=== PATIENT | female | born 1995 | race Caucasian/White ===

== ENCOUNTER 2016-08-22 07:27 | Emergency (ER) | payer OTHER ==
--- NOTE | 2016-08-22 08:24 | EDDOCDS ---
Physician Documentation [facility] Name: Jolene Robert Age: 21 yrs Sex: Female : 1995 Arrival Date: 08/22/2016 Time: 07:27 Bed I3 / M3 Private MD: Disposition: 08/22/16 08:16 Discharged to Home/Self Care. Impression: Dysuria, Urinary tract infection, site not specified. - Condition is Stable. - Discharge Instructions: Urinary Tract Infection. - Prescriptions for Pyridium 200 mg Oral Tablet - take 1 tablet by ORAL route every 8 hours for 2 days; 6 tablet. Macrobid 100 mg Oral Capsule - take 100 milligrams by ORAL route every 12 hours for 7 days; 14 capsule. - Medication Reconciliation, Local Pharmacy Hours form. - Follow up: Emergency Department; When: As needed; Reason: Worsening of conditions. [facility]; When: Call to arrange an appointment; Reason: Recheck today's complaints, Continuance of care, To establish care. Follow up: Hillary Tyson MD; When: Call to arrange an appointment; Reason: Wound/Symptom Recheck, Further diagnostic work-up, Recheck today's complaints, Continuance of care, To establish care. - Problem is new. - Symptoms are unchanged. - Notes: THE PYRIDIUM IS FOR THE DISCOMFORT AND THIS MEDICATION WILL TURN YOUR URINE BRIGHT ORANGE-RED. THIS IS NORMAL. PLEASE CALL THE UROLOGIST TO SCHEDULE A FOLLOW UP APPOINTMENT TO BE SEEN. THEY CAN PERFORM MORE TESTING TO SEE WHY YOU GET FREQUENT INFECTIONS. TAKE THE ANTIBIOTIC DIRECTED UNTIL IT IS GONE, EVEN IF YOUR SYMPTOMS IMPROVE BEFORE THAT. Historical: - Allergies: no known allergies; - Home Meds: 1. none - PMHx: UTI's, Frequent; - PSHx: none; - Social history: Smoking status: Patient/guardian denies using No barriers to communication noted, The patient speaks fluent Ukrainian. - Family history: Not pertinent. - : The pt / caregiver states he / she is not on anticoagulants. Home medication list is obtained from the patient. - Exposure Risk Screening:: None identified. 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 2 in. (157.48 cm) (R); Pain 310; 07:34 Body Mass Index 18.29 (45.36 kg, 157.48 cm) dls MDM: 07:37 UCG by Nursing ordered. dt4 07:39 Urinalysis Ordered. EDMS 07:39 Urine Culture Ordered. EDMS 07:46 [facility] Payment Agreement was scanned into ? and attached to record. dm19 07:46 Financial registration complete. dm19 Point of Care Testing: Urine : 07:45 hCG Reading: Negative; jam1 Ranges: Signatures: Dispatcher [employer] EDJoselyn Workman RN RN dls Carol Nice RN RN kr3 Wanda Rosa, CARLOS GONZALEZ dt4 Wanda Gleason dm19 The chart was reviewed and I authenticate all verbal orders and agree with the evaluation and treatment provided.Attachments: 07:46 [facility] Payment Agreement dm19 MTDD
--- NOTE | 2016-08-22 08:24 | EDDOCDS ---
Nurse's Notes [facility] Name: Jolene Robert Age: 21 yrs Sex: Female : 1995 Arrival Date: 08/22/2016 Time: 07:27 Bed I3 / M3 Private MD: Diagnosis: Dysuria;Urinary tract infection, site not specified Presentation: 08/22 07:32 Presenting complaint: Patient states: Pt presents with c/o sx of bladder infection pt dls has hx of frequent uti's states it is making her anxious. Adult Sepsis Screening: The patient does not have new or worsening altered mentation. Patient's respiratory rate is less than 22. Systolic blood pressure is greater than 100. Patient has a qSOFA score of 0- Negative Sepsis Screen. Suicide/Homicide risk assessment- the patient denies having any suicidal and/or homicidal ideations and does not present with any other emotional, behavioral or mental health complaints. Status: Patient is not a agricultural services director or dependent. Transition of care: patient was not received from another setting of care. 07:32 Acuity: ALEX Level 4 dls 07:32 Method Of Arrival: Walkin/Carried/Asstd dls Triage Assessment: 07:34 General: Appears in no apparent distress, slender, well developed, well nourished, well dls groomed, Behavior is cooperative. Pain: Pain currently is 3 out of 10 on a pain scale. HIV screening NA for this visit Offered previously. 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 none - PMHx: UTI's, Frequent; - PSHx: none; - Social history: Smoking status: Patient/guardian denies using No barriers to communication noted, The patient speaks fluent Swedish. - Family history: Not pertinent. - : The pt / caregiver states he / she is not on anticoagulants. Home medication list is obtained from the patient. - Exposure Risk Screening:: None identified. Screenin:45 Screening information is obtained from the patient. Primary language is Swedish. Fall jam1 risk: No risks identified. Assistance ADL's: requires no assistance with activities of daily living. Abuse/DV Screen: The patient / caregiver reports he/she is: not in a situation that causes fear, pain or injury. Nutritional screening: No deficits noted. Exposure Risk Screening: None identified. Advance Directives: Currently, there is no health care proxy. There is no active DNR order. There is no living will. There is no Power of Industry Consultant. Advance directive information has not previously been placed in an [facility] medical record. Further advance directive information is declined. home support is adequate. Assessment: 07:55 General: Appears in no apparent distress, comfortable, Behavior is appropriate for age, kr3 cooperative. Pain: Denies pain. Respiratory: Respiratory effort is even, unlabored. Derm: Skin is normal. Vital Signs: 07:34 BP 133 / 79; Pulse 67; Resp 16; Temp 97.5; Pulse Ox 98% on R/A; Weight 45.36 kg (R); dls Height 5 ft. 2 in. (157.48 cm) (R); Pain 3/10; 07:34 Body Mass Index 18.29 (45.36 kg, 157.48 cm) reading hospital Vitals: 07:34 Log In Time: August 22, 2016 at 07:28. dls ED Course: 07:29 Patient visited by Margo Prasad Reg. hs2 07:29 Patient moved to Waiting hs2 07:34 Triage Initiated dls 07:37 Patient moved to I3 / M3 dls 07:42 Wanda Rosa [facility]-C [facility]. dt4 07:42 Teodoro Clarke MD is Attending Physician. dt4 07:42 Patient visited by Wanda Rosa PA-C. dt4 07:44 Urine Culture Sent. jam1 07:44 Urinalysis Sent. jam1 07:45 Pt greeted and oriented to ED. Patient advised of names of staff involved in care, jam1 location of call rogel, wait times and NPO status. Patient has correct armband on for positive identification. Bed in low position. Call light in reach. Side rails up X 1. Door closed. 07:46 [facility] Payment Agreement was scanned into [employer] and attached to record. dm19 07:54 The patient / caregiver is instructed regarding the plan of care and ED course. kr3 07:54 No procedures done that require assistance. kr3 08:16 [facility] is Referral Physician. dt4 08:16 Hillary Tyson MD is Referral Physician. dt4 08:23 No IV's were initiated during this patient's visit. kr3 Point of Care Testing: Urine : 07:45 hCG Reading: Negative; jam1 Ranges: Order Results: Lab Order: Urinalysis; SPEC'M 08/22/16 07:41 Test: APPEARANCE, URINE; Value: CLOUDY; Range: CLEAR; Abnormal: Above high normal; Status: F Test: COLOR, URINE; Value: GRISELDA; Range: YELLOW; Status: F Test: PH,URINE; Value: 5.0; Range: 5.0-9.0; Units: UNITS; Status: F Test: SPECIFIC GRAVITY URINE AUTO; Value: 1.026; Range: 1.002-1.035; Status: F Test: PROTEIN, URINE AUTO; Value: 1+; Range: NEGATIVE; Abnormal: Above high normal; Units: mg/dL; Status: F Test: GLUCOSE, URINE (UA) AUTO; Value: NEGATIVE; Range: NEGATIVE; Units: mg/dL; Status: F Test: KETONE, URINE AUTO; Value: TRACE; Range: NEGATIVE; Abnormal: Above high normal; Units: mg/dL; Status: F Test: UROBILINOGEN, URINE AUTO; Value: 0.2; Range: 0.0-2.0; Units: mg/dL; Status: F Test: BILIRUBIN, URINE AUTO; Value: NEGATIVE; Range: NEGATIVE; Status: F Test: NITRITE, URINE AUTO; Value: NEGATIVE; Range: NEGATIVE; Status: F Test: LEUKOCYTE ESTERASE, URINE AUTO; Value: 2+; Range: NEGATIVE; Abnormal: Above high normal; Status: F Test: BLOOD, URINE BLOOD; Value: 1+; Range: NEGATIVE; Abnormal: Above high normal; Status: F Test: WBC, URINE AUTO; Value: 97; Range: 0-3; Abnormal: Above high normal; Units: /HPF; Status: F Test: RBC, URINE AUTO; Value: 10; Range: 0-3; Abnormal: Above high normal; Units: /HPF; Status: F Test: BACTERIA, URINE AUTO; Value: NEGATIVE; Range: NEGATIVE; Status: F Test: SQUAMOUS EPITHELIAL CELL UR AU; Value: 2; Range: 0-6; Units: /HPF; Status: F Test: MUCUS, URINE; Value: LARGE; Range: NEGATIVE; Status: F Test: HYALINE CAST, URINE AUTO; Value: 0; Range: 0-1; Units: /LPF; Status: F Outcome: 07:54 No special radiology studies were completed. kr3 08:16 Discharge ordered by Provider. dt4 08:22 Discharge Assessment: patient administered narcotics - no. The following High Risk kr3 Discharge criteria are identified: None. Discharged to home ambulatory. Condition: stable. Discharge instructions given to patient, Instructed on discharge instructions, follow up and referral plans. medication usage, Demonstrated understanding of instructions, medications, Pt was receptive of discharge instructions/ teaching. Prescriptions given X 2. Property sent home with patient. 08:23 Patient left the ED. kr3 Signatures: Joselyn Santiago, RN RN dls Brandy Montoya, PROCUREMENT FORESTER PROCUREMENT FORESTER jam1 Carol Nice,RN RN kr3 Wanda Rosa, CARLOS PAArian dt4 Margo Prasad, Reg Reg hs2 Wanda Gleason dm19 MTDD
--- NOTE | 2016-08-25 10:40 | EDDOCDS ---
Nurse's Notes [facility] Name: Jolene Robert Age: 21 yrs Sex: Female : 1995 Arrival Date: 08/22/2016 Time: 07:27 Bed I3 / M3 Private MD: Diagnosis: Dysuria;Urinary tract infection, site not specified Presentation: 08/22 07:32 Presenting complaint: Patient states: Pt presents with c/o sx of bladder infection pt dls has hx of frequent uti's states it is making her anxious. Adult Sepsis Screening: The patient does not have new or worsening altered mentation. Patient's respiratory rate is less than 22. Systolic blood pressure is greater than 100. Patient has a qSOFA score of 0- Negative Sepsis Screen. Suicide/Homicide risk assessment- the patient denies having any suicidal and/or homicidal ideations and does not present with any other emotional, behavioral or mental health complaints. Status: Patient is not a bookkeeping service sales agent or dependent. Transition of care: patient was not received from another setting of care. 07:32 Acuity: ALEX Level 4 dls 07:32 Method Of Arrival: Walkin/Carried/Asstd dls Triage Assessment: 07:34 General: Appears in no apparent distress, slender, well developed, well nourished, well dls groomed, Behavior is cooperative. Pain: Pain currently is 3 out of 10 on a pain scale. HIV screening NA for this visit Offered previously. 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 none - PMHx: UTI's, Frequent; - PSHx: none; - Social history: Smoking status: Patient/guardian denies using No barriers to communication noted, The patient speaks fluent Bangladeshi. - Family history: Not pertinent. - : The pt / caregiver states he / she is not on anticoagulants. Home medication list is obtained from the patient. - Exposure Risk Screening:: None identified. Screenin:45 Screening information is obtained from the patient. Primary language is Bangladeshi. Fall jam1 risk: No risks identified. Assistance ADL's: requires no assistance with activities of daily living. Abuse/DV Screen: The patient / caregiver reports he/she is: not in a situation that causes fear, pain or injury. Nutritional screening: No deficits noted. Exposure Risk Screening: None identified. Advance Directives: Currently, there is no health care proxy. There is no active DNR order. There is no living will. There is no Power of Electric Gas Appliances Demonstrator. Advance directive information has not previously been placed in an [facility] medical record. Further advance directive information is declined. home support is adequate. Assessment: 07:55 General: Appears in no apparent distress, comfortable, Behavior is appropriate for age, kr3 cooperative. Pain: Denies pain. Respiratory: Respiratory effort is even, unlabored. Derm: Skin is normal. Vital Signs: 07:34 BP 133 / 79; Pulse 67; Resp 16; Temp 97.5; Pulse Ox 98% on R/A; Weight 45.36 kg (R); dls Height 5 ft. 2 in. (157.48 cm) (R); Pain 3/10; 07:34 Body Mass Index 18.29 (45.36 kg, 157.48 cm) [facility] Vitals: 07:34 Log In Time: August 22, 2016 at 07:28. dls ED Course: 07:29 Patient visited by Margo Prasad Reg. hs2 07:29 Patient moved to Waiting hs2 07:34 Triage Initiated dls 07:37 Patient moved to I3 / M3 dls 07:42 Wanda Rosa [facility]. dt4 07:42 Teodoro Clarke MD is Attending Physician. dt4 07:42 Patient visited by Wanda Rosa PA-C. dt4 07:44 Urine Culture Sent. jam1 07:44 Urinalysis Sent. jam1 07:45 Pt greeted and oriented to ED. Patient advised of names of staff involved in care, jam1 location of call rogel, wait times and NPO status. Patient has correct armband on for positive identification. Bed in low position. Call light in reach. Side rails up X 1. Door closed. 07:46 [facility] Payment Agreement was scanned into [employer] and attached to record. dm19 07:54 The patient / caregiver is instructed regarding the plan of care and ED course. kr3 07:54 No procedures done that require assistance. kr3 08:16 [facility] is Referral Physician. dt4 08:16 Hillary Tyson MD is Referral Physician. dt4 08:23 No IV's were initiated during this patient's visit. kr3 11:42 T-Sheet-- Draft Copy was scanned into [employer] and attached to record. [facility] Point of Care Testing: Urine : 07:45 hCG Reading: Negative; jam1 Ranges: Order Results: Lab Order: Urinalysis; SPEC'M 08/22/16 07:41 Test: APPEARANCE, URINE; Value: CLOUDY; Range: CLEAR; Abnormal: Above high normal; Status: F Test: COLOR, URINE; Value: GRISELDA; Range: YELLOW; Status: F Test: PH,URINE; Value: 5.0; Range: 5.0-9.0; Units: UNITS; Status: F Test: SPECIFIC GRAVITY URINE AUTO; Value: 1.026; Range: 1.002-1.035; Status: F Test: PROTEIN, URINE AUTO; Value: 1+; Range: NEGATIVE; Abnormal: Above high normal; Units: mg/dL; Status: F Test: GLUCOSE, URINE (UA) AUTO; Value: NEGATIVE; Range: NEGATIVE; Units: mg/dL; Status: F Test: KETONE, URINE AUTO; Value: TRACE; Range: NEGATIVE; Abnormal: Above high normal; Units: mg/dL; Status: F Test: UROBILINOGEN, URINE AUTO; Value: 0.2; Range: 0.0-2.0; Units: mg/dL; Status: F Test: BILIRUBIN, URINE AUTO; Value: NEGATIVE; Range: NEGATIVE; Status: F Test: NITRITE, URINE AUTO; Value: NEGATIVE; Range: NEGATIVE; Status: F Test: LEUKOCYTE ESTERASE, URINE AUTO; Value: 2+; Range: NEGATIVE; Abnormal: Above high normal; Status: F Test: BLOOD, URINE BLOOD; Value: 1+; Range: NEGATIVE; Abnormal: Above high normal; Status: F Test: WBC, URINE AUTO; Value: 97; Range: 0-3; Abnormal: Above high normal; Units: /HPF; Status: F Test: RBC, URINE AUTO; Value: 10; Range: 0-3; Abnormal: Above high normal; Units: /HPF; Status: F Test: BACTERIA, URINE AUTO; Value: NEGATIVE; Range: NEGATIVE; Status: F Test: SQUAMOUS EPITHELIAL CELL UR AU; Value: 2; Range: 0-6; Units: /HPF; Status: F Test: MUCUS, URINE; Value: LARGE; Range: NEGATIVE; Status: F Test: HYALINE CAST, URINE AUTO; Value: 0; Range: 0-1; Units: /LPF; Status: F Lab Order: Urine Culture; SPEC'M 08/22/16 07:41 Test: URINE CULTURE; Value: URINE CULTURE RESULT SPECIMEN APPEARS CONTAMINATED; Status: F Outcome: 07:54 No special radiology studies were completed. kr3 08:16 Discharge ordered by Provider. dt4 08:22 Discharge Assessment: patient administered narcotics - no. The following High Risk kr3 Discharge criteria are identified: None. Discharged to home ambulatory. Condition: stable. Discharge instructions given to patient, Instructed on discharge instructions, follow up and referral plans. medication usage, Demonstrated understanding of instructions, medications, Pt was receptive of discharge instructions/ teaching. Prescriptions given X 2. Property sent home with patient. 08:23 Patient left the ED. kr3 Signatures: Joselyn Santiago, RN RN dls Brandy Montoya, WOODEN SHADE HARDWARE INSTALLER WOODEN SHADE HARDWARE INSTALLER jam1 Carol Nice RN RN kr3 Wanda Rosa, PA-C PA-C dt4 Margo Prasad, [facility]2 Dominga Carranza Diane dm19 Chart Complete [facility]
--- NOTE | 2016-08-25 10:40 | EDDOCDS ---
Physician Documentation [facility] Name: Jolene Robert Age: 21 yrs Sex: Female : 1995 Arrival Date: 08/22/2016 Time: 07:27 Bed I3 / M3 Private MD: Disposition: 08/22/16 08:16 Discharged to Home/Self Care. Impression: Dysuria, Urinary tract infection, site not specified. - Condition is Stable. - Discharge Instructions: Urinary Tract Infection. - Prescriptions for Pyridium 200 mg Oral Tablet - take 1 tablet by ORAL route every 8 hours for 2 days; 6 tablet. Macrobid 100 mg Oral Capsule - take 100 milligrams by ORAL route every 12 hours for 7 days; 14 capsule. - Medication Reconciliation, Local Pharmacy Hours form. - Follow up: Emergency Department; When: As needed; Reason: Worsening of conditions. [facility]; When: Call to arrange an appointment; Reason: Recheck today's complaints, Continuance of care, To establish care. Follow up: Hillary Tyson MD; When: Call to arrange an appointment; Reason: Wound/Symptom Recheck, Further diagnostic work-up, Recheck today's complaints, Continuance of care, To establish care. - Problem is new. - Symptoms are unchanged. - Notes: THE PYRIDIUM IS FOR THE DISCOMFORT AND THIS MEDICATION WILL TURN YOUR URINE BRIGHT ORANGE-RED. THIS IS NORMAL. PLEASE CALL THE UROLOGIST TO SCHEDULE A FOLLOW UP APPOINTMENT TO BE SEEN. THEY CAN PERFORM MORE TESTING TO SEE WHY YOU GET FREQUENT INFECTIONS. TAKE THE ANTIBIOTIC DIRECTED UNTIL IT IS GONE, EVEN IF YOUR SYMPTOMS IMPROVE BEFORE THAT. Historical: - Allergies: no known allergies; - Home Meds: 1. none - PMHx: UTI's, Frequent; - PSHx: none; - Social history: Smoking status: Patient/guardian denies using No barriers to communication noted, The patient speaks fluent Prydeinig. - Family history: Not pertinent. - : The pt / caregiver states he / she is not on anticoagulants. Home medication list is obtained from the patient. - Exposure Risk Screening:: None identified. 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 2 in. (157.48 cm) (R); Pain 3; 07:34 Body Mass Index 18.29 (45.36 kg, 157.48 cm) dls MDM: 07:37 UCG by Nursing ordered. dt4 07:39 Urinalysis Ordered. EDMS 07:39 Urine Culture Ordered. EDMS 07:46 [facility] Payment Agreement was scanned into [employer] and attached to record. dm19 07:46 Financial registration complete. dm19 11:42 T-Sheet-- Draft Copy was scanned into [employer] and attached to record. [facility] Point of Care Testing: Urine : 07:45 hCG Reading: Negative; jam1 Ranges: Signatures: Dispatcher [employer] Joselyn Hughes RN RN Carol Booker RN RN kr3 Wanda Rosa, CARLOS GONZALEZ dt4 Dominga Carranza Diane dm19 The chart was reviewed and I authenticate all verbal orders and agree with the evaluation and treatment provided.Attachments: 07:46 [facility] Payment Agreement dm19 11:42 T-Sheet-- Draft Copy [facility] Chart Complete MTDD
--- NOTE | 2016-08-25 10:40 | EDDOCDS ---
Physician Documentation [facility] Name: Jolene Robert Age: 21 yrs Sex: Female : 1995 Arrival Date: 08/22/2016 Time: 07:27 Bed I3 / M3 Private MD: Disposition: 08/22/16 08:16 Discharged to Home/Self Care. Impression: Dysuria, Urinary tract infection, site not specified. - Condition is Stable. - Discharge Instructions: Urinary Tract Infection. - Prescriptions for Pyridium 200 mg Oral Tablet - take 1 tablet by ORAL route every 8 hours for 2 days; 6 tablet. Macrobid 100 mg Oral Capsule - take 100 milligrams by ORAL route every 12 hours for 7 days; 14 capsule. - Medication Reconciliation, Local Pharmacy Hours form. - Follow up: Emergency Department; When: As needed; Reason: Worsening of conditions. Follow up: [facility]; When: Call to arrange an appointment; Reason: Recheck today's complaints, Continuance of care, To establish care. Follow up: Hillary Tyson MD; When: Call to arrange an appointment; Reason: Wound/Symptom Recheck, Further diagnostic work-up, Recheck today's complaints, Continuance of care, To establish care. - Problem is new. - Symptoms are unchanged. - Notes: THE PYRIDIUM IS FOR THE DISCOMFORT AND THIS MEDICATION WILL TURN YOUR URINE BRIGHT ORANGE-RED. THIS IS NORMAL. PLEASE CALL THE UROLOGIST TO SCHEDULE A FOLLOW UP APPOINTMENT TO BE SEEN. THEY CAN PERFORM MORE TESTING TO SEE WHY YOU GET FREQUENT INFECTIONS. TAKE THE ANTIBIOTIC DIRECTED UNTIL IT IS GONE, EVEN IF YOUR SYMPTOMS IMPROVE BEFORE THAT. Historical: - Allergies: no known allergies; - Home Meds: 1. none - PMHx: UTI's, Frequent; - PSHx: none; - Social history: Smoking status: Patient/guardian denies using No barriers to communication noted, The patient speaks fluent Libyan. - Family history: Not pertinent. - : The pt / caregiver states he / she is not on anticoagulants. Home medication list is obtained from the patient. - Exposure Risk Screening:: None identified. 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 2 in. (157.48 cm) (R); Pain 3; 07:34 Body Mass Index 18.29 (45.36 kg, 157.48 cm) dls MDM: 07:37 UCG by Nursing ordered. dt4 07:39 Urinalysis Ordered. EDMS 07:39 Urine Culture Ordered. EDMS 07:46 [facility] Payment Agreement was scanned into [employer] and attached to record. dm19 07:46 Financial registration complete. dm19 11:42 T-Sheet-- Draft Copy was scanned into [employer] and attached to record. [facility] Point of Care Testing: Urine : 07:45 hCG Reading: Negative; jam1 Ranges: Signatures: Dispatcher [employer] Joselyn Hughes RN RN Carol Booker RN RN kr3 Wanda Rosa, CARLOS GONZALEZ dt4 Dominga Carranza Diane dm19 The chart was reviewed and I authenticate all verbal orders and agree with the evaluation and treatment provided.Attachments: 07:46 [facility] Payment Agreement dm19 11:42 T-Sheet-- Draft Copy [facility] Chart Complete MTDD
== END 2016-08-22 08:23 | disposition home or self-care (01) ==
LOC: M ED 07:27
DX: N39.0 Urinary tract infection, site not specified (principal); Z87.440 Personal history of urinary (tract) infections

== ENCOUNTER 2016-11-23 00:53 | Emergency (ER) | payer OTHER ==
[~2016-11-23] VITALS: Ht 157.5 cm; Wt 49.9 kg
[2016-11-23 04:10] LABS: CALCIUM OXALATE CRYSTALS SMALL
[2016-11-23] MEDS ORDERED: CIPR500T89 PO (04:21)
[2016-11-23] MEDS ORDERED: PYRI200T5 PO (04:21)
[2016-11-23] MEDS ORDERED: PHENAZOPYRIDINE 100 MG TAB PO ONE (04:30)
[2016-11-23] MEDS ORDERED: CIPROFLOXACIN 500 MG TAB PO ONE (04:30)
[2016-11-23 04:31] VITALS: BP 127/74
== END 2016-11-23 04:32 | disposition home or self-care (01) ==
LOC: M ED 01:54
DX: R30.0 Dysuria (principal)

== ENCOUNTER → 2017-02-26 | Outpatient (REF) | payer OTHER ==
[~2017-02-26] MED LIST: CIPR-249 PO; PYRI1TAB5 PO
[2017-02-26 22:59] LABS: CALCIUM OXALATE CRYSTALS MODERATE
== END ==
LOC: M LAB REF 09:38
PROVIDERS: ATTEND Physician Assistant Medical
DX: N39.0 Urinary tract infection, site not specified (principal)

== ENCOUNTER 2017-07-18 20:39 | Emergency (ER) | payer OTHER ==
[~2017-07-18] VITALS: Ht 157.5 cm; Wt 45.5 kg
[2017-07-18 22:12] VITALS: BP 116/81
== END 2017-07-18 22:21 | disposition home or self-care (01) ==
LOC: M ED 20:39
DX: S61.310A Laceration without foreign body of right index finger with damage to nail, initial encounter (principal); W31.82XA Contact with other commercial machinery, initial encounter; Y92.59 Other trade areas as the place of occurrence of the external cause; Y93.89 Activity, other specified; Y99.0 Civilian activity done for income or pay

== ENCOUNTER → 2017-08-10 | Outpatient (REF) | payer OTHER | LOC: M LAB REF 09:28 | PROVIDERS: ATTEND Physician Assistant | DX: N39.0 Urinary tract infection, site not specified (principal) ==

== ENCOUNTER → 2018-02-28 | Outpatient (REF) | payer OTHER ==
[2018-02-28 18:49] LABS: APPEARANCE, URINE HAZY (CLEAR); BACTERIA, URINE AUTO 2+ (NEGATIVE); BILIRUBIN, URINE AUTO NEGATIVE (NEGATIVE); BLOOD, URINE BLOOD 1+ (NEGATIVE); COLOR, URINE AMBER (YELLOW); GLUCOSE, URINE (UA) AUTO NEGATIVE (NEGATIVE); KETONE, URINE AUTO NEGATIVE (NEGATIVE); LEUKOCYTE ESTERASE, URINE AUTO 2+ (NEGATIVE); MUCUS, URINE SMALL (NEGATIVE); NITRITE, URINE AUTO POSITIVE (NEGATIVE); PROTEIN, URINE AUTO NEGATIVE (NEGATIVE); RBC, URINE AUTO 4 /HPF (0-3); SPECIFIC GRAVITY URINE AUTO 1.018 (1.002-1.035); SQUAMOUS EPITHELIAL CELL UR AU 2 /HPF (0-6); UROBILINOGEN, URINE AUTO 0.2 mg/dL (0.0-2.0); WBC, URINE AUTO 22 /HPF (0-3)
== END ==
LOC: M LAB REF 17:10
DX: N39.0 Urinary tract infection, site not specified (principal)

== ENCOUNTER → 2018-05-20 | Outpatient (REF) | payer OTHER | LOC: M SFHCPLAZ 11:47 | DX: R30.0 Dysuria (principal) ==

== ENCOUNTER → 2018-10-20 | Outpatient (CLI) | payer OTHER ==
[2018-10-20 20:21] LABS: HCG, SERUM QUALITATIVE POSITIVE (NEGATIVE)
[2018-10-20 20:41] LABS: HCG, SERUM QUANTITATIVE 64759 MIU/ML
== END ==
LOC: M LAB 19:43
PROVIDERS: ATTEND Physician Assistant Medical
DX: N91.2 Amenorrhea, unspecified (principal)

== ENCOUNTER → 2019-01-20 | Outpatient (CLI) | payer OTHER ==
[2019-01-20 14:06] LABS: BASO # 0.1 10^3/uL (0.0-0.2); BASO % 0.3 % (0.0-1.0); EOS # 0.3 10^3/uL (0.0-0.50); EOS % 2.3 % (0.0-3.0); HEMATOCRIT 36.2 % (36.0-47.0); HEMOGLOBIN 11.8 g/dl (12.0-15.5); LYMPH # 3.2 10^3/uL (1.5-6.5); LYMPH % 21.7 % (24.0-44.0); MEAN CORPUSCULAR HEMOGLOBIN 32.3 pg (27.0-33.0); MEAN CORPUSCULAR HGB CONC 32.6 g/dl (32.0-36.5); MEAN CORPUSCULAR VOLUME 99.2 fl (80.0-96.0); MONO # 0.8 10^3/uL (0.0-0.8); MONO % 5.4 % (0.0-5.0); NEUTROPHILS # 10.3 10^3/uL (1.8-7.7); NEUTROPHILS % 69.8 % (36.0-66.0); PLATELET COUNT, AUTOMATED 349 10^3/uL (150-450); RED BLOOD COUNT 3.65 10^6/uL (4.00-5.40); WHITE BLOOD COUNT 14.7 10^3/uL (4.0-10.0)
[2019-01-20 14:56] LABS: HEPATITIS C VIRUS ABY INDEX < 0.0 INDEX (<0.8); HIV 1&2 SCREEN CENTAUR NEGATIVE (NEGATIVE); RUBELLA IgG QUALITATIVE EQUIVOCAL (IMMUNE)
[2019-01-20 15:32] LABS: CHLAMYDIA DNA AMPLIFICATION NEGATIVE (NEGATIVE); GC DNA AMPLIFICATION NEGATIVE (NEGATIVE)
== END ==
LOC: M SMT 09:27
PROVIDERS: ATTEND Advanced Practice Midwife
DX: Z34.82 Encounter for supervision of other normal pregnancy, second trimester (principal); Z3A.00 Weeks of gestation of pregnancy not specified

== ENCOUNTER → 2019-01-30 | Outpatient (CLI) | payer OTHER ==
--- NOTE | 2019-01-30 09:55 | REP ---
OB ULTRASOUND: Real-time sonographic evaluation of the gravid uterus is performed. There is a single living intrauterine gestation. The estimated gestational age is 29 weeks. EDC 04/17/2019. BPD 75 mm = 30 weeks 2 days HC 265 mm = 28 weeks 6 days AC 236 mm= 28 weeks 0 days Femur length 56 mm = 29 weeks 2 days HC/AC ratio 1.12 within normal range. Estimated weight 261 grams, 33rd percentile. The cervix is not well visualized and could not be measured. heart rate 141 beats per minute. Amniotic fluid within normal limits. AGNES 13.2 within normal range of 9.2 to 23.1. SD ratio 3.04 and RI 0.67 with normal range. SEEN/GROSSLY UNREMARKABLE Lateral ventricles Yes Posterior fossa No Upper lip No Four-chamber heart No LVOT Yes RVOT Yes Stomach Yes Cord insertion No Three vessel cord Yes Kidneys Yes Bladder Yes Spine No position: Vertex. Placenta: Anterior and to the right, grade 1, with no previa or abruption. Electronically Signed by Forest Whalen MD 01/30/2019 04:18 P
== END ==
LOC: M RAD 08:06
PROVIDERS: ATTEND Advanced Practice Midwife
DX: Z34.82 Encounter for supervision of other normal pregnancy, second trimester (principal)

== ENCOUNTER → 2019-03-09 | Outpatient (CLI) | payer OTHER ==
--- NOTE | 2019-03-13 13:12 | REP ---
Clinical: Growth evaluation. Comparison: 02/16/2019 . Findings: Examination demonstrates a single live intrauterine in cephalic presentation. motion is identified by technologist. Placenta is noted anterior and grade one without evidence for placenta previa or abruption. Amniotic fluid volume is normal. Cervix measures 4.4 cm in length and appears closed. No evidence for nuchal cord. Gestational age by LMP 32 weeks 3 days with JENY 05/01/2019 . Gestational age by current measurements 33 weeks 1 day with JENY 04/26/2019 . FHR equals 133 beats per minute. BPD 8.2 cm 33 weeks 1 day HC 29.7 cm 32 weeks 6 days AC 31.7 cm 35 weeks 4 days FL 6.0 cm 31 weeks 2 days HL 5.6 cm 32 weeks 4 days HC/AC ratio 0.94 Estimated weight 2309 grams ( 37th percentile based on age by first ultrasound at 34 weeks 3 days ). Anatomical assessment demonstrates normal structures including cranium, choroid plexus, cavum, cerebellum/posterior fossa, facial features, lungs, four-chamber heart/ventricular outflow tracts, diaphragm, stomach, cord insertion/three-vessel cord, kidneys/bladder, and spine. Amniotic fluid index: 11.9 cm (8.0 - 24.8) Impression: Single live intrauterine in cephalic presentation demonstrating appropriate interval growth. Electronically Signed by Luis Benjamin MD 03/13/2019 01:04 P
== END ==
LOC: M RAD 09:23
PROVIDERS: ATTEND Advanced Practice Midwife
DX: O26.843 Uterine size-date discrepancy, third trimester (principal); Z3A.33 33 weeks gestation of pregnancy

== ENCOUNTER → 2019-04-11 | Outpatient (REF) | payer OTHER ==
[~2019-04-11] MED LIST changes: +ACET-683 PO; +IBUP80TA PO; +PRENTAB9 PO
== END ==
LOC: M LAB REF 13:03
PROVIDERS: ATTEND Advanced Practice Midwife
DX: Z34.83 Encounter for supervision of other normal pregnancy, third trimester (principal)

== ENCOUNTER 2019-04-21 22:45 | Inpatient (IN) | payer OTHER ==
[~2019-04-21] VITALS: Ht 157.5 cm; Wt 56.7 kg
[~2019-04-21 22:45] MED LIST changes: -ACET-683 PO; -IBUP80TA PO; -PRENTAB9 PO
[2019-04-21 23:06] VITALS: BP 113/77
[2019-04-21] MEDS ORDERED: PRENTAB9 PO (23:19)
[2019-04-21] MEDS ORDERED: LACTATED RINGER'S 1000 ML IV STA (23:52)
[2019-04-22] VITALS (29 sets, daily range): BP systolic 102–141; BP diastolic 60–88
[2019-04-22] MEDS ORDERED: BUTORPHANOL 2 MG/ML INJ (J0595) IV ONE (00:15)
[2019-04-22] MEDS ORDERED: PROMETHAZINE INJ 25 MG/ML VIAL (J2550) IV ONE (00:15)
[2019-04-22 00:31] LABS: HEMATOCRIT 36.2 % (36.0-47.0); MEAN CORPUSCULAR HEMOGLOBIN 31.3 pg (27.0-33.0); MEAN CORPUSCULAR HGB CONC 33.1 g/dl (32.0-36.5); MEAN CORPUSCULAR VOLUME 94.3 fl (80.0-96.0); PLATELET COUNT, AUTOMATED 315 10^3/uL (150-450); RED BLOOD COUNT 3.84 10^6/uL (4.00-5.40); WHITE BLOOD COUNT 19.1 10^3/uL (4.0-10.0)
--- NOTE | 2019-04-22 00:31 | HPE ---
DATE OF ADMISSION: 04/21/2019 CHIEF COMPLAINT: Abdominal and pelvic pain and leaking. HISTORY OF PRESENT ILLNESS: Jolene is a 24-year-old 1, para 0-0-0-0 at 40 weeks 4 days estimated gestational age by last menstrual period of 08/08/2019, confirmed by first trimester ultrasound with an estimated date of delivery of 04/17/2019. She is presenting complaining of lower abdominal pain and shaking as well as leaking pink discharge that started this morning. Around 2100 hours this evening, she started feeling increased pressure and contractions that were about 4 minutes apart. She is feeling the baby move. She denies any other discharge. She started care late at 19 weeks but has been compliant throughout the rest of it. LABS: Blood type O+, antibody screen negative, rubella equivocal, VDRL nonreactive. Hepatitis B surface antigen negative, HIV negative, hepatitis C nonreactive, chlamydia negative, gonorrhea negative, GBS negative. Urine drug screen was positive for cannabinoids. Obstetrical ultrasound shows single intrauterine with an anterior placenta grade 1. PAST OBSTETRICAL HISTORY: None. PAST MEDICAL HISTORY: Depression and anxiety. MEDICATIONS: Prenatals. PAST SURGICAL HISTORY: ALLERGIES: SULFA SOCIAL HISTORY: Denies tobacco, alcohol or illicit drugs. PHYSICAL EXAM: Abdomen: Gravid. Sterile vaginal exam: 30, 90, -1. monitor: 115 beats per minute, moderate variability, accelerations, no decelerations. Category 1 tracing. [place]: Contractions every 2-4 minutes. ASSESSMENT/PLAN: 1. This is an intrauterine at 40 weeks and 4 days estimated gestational age presenting in active labor. Admit to labor and delivery with routine labs and orders. 2. Group B Streptococcus (GBS) negative. No antibiotics are needed. 3. Anticipate spontaneous vaginal delivery.
[2019-04-22] MEDS ORDERED: FENTANYL 2MCG/ML ROPIVACAINE 0.2% IN 0.9% NACL 100ML IVBAG As Ordered ONE (02:25)
[2019-04-22] MEDS ORDERED: REFRIGERATOR IV KEYS XX PRN (03:10)
[2019-04-22] MEDS ORDERED: EPIDURAL COMMENT XX SCH (03:10)
[2019-04-22] MEDS ORDERED: NALOXONE INJ 0.4 MG/1 ML VIAL (J2310) IV PRN (03:10)
[2019-04-22] MEDS ORDERED: ePHEDrine SULFATE 25 MG/5 ML(5MG/ML) SYRINGE IV PRN (03:10)
[2019-04-22] MEDS ORDERED: ONDANSETRON 4MG/2ML VIAL (J2405) IV PRN (03:10)
[2019-04-22] MEDS ORDERED: diphenhydrAMINE INJ 50MG/ML VIAL (J1200) IV PRN (03:10)
[2019-04-22] MEDS ORDERED: EPIDURAL/PCA KEYS XX PRN (03:10)
[2019-04-22] MEDS ORDERED: FENTANYL/ROPIVACAINE/NACL BAG 100 ML EPIDURAL SCH (03:10)
--- NOTE | 2019-04-22 06:37 | IPNPDOC ---
Text Note Date of Service The patient was seen on 04/22/19. NOTE Progress note Reports ROM 1800, clear fluid Comfortable now with epidural UC 3-4 minutes x 60 seconds FH Cat I with episodes Cat II that resolve with position change SVE 10/100/-1 VS,Fishbone, I+O VS, Fishbone, I+O Laboratory Tests 04/22/19 00:09 Red Blood Count 3.84 L, Mean Corpuscular Volume 94.3, Mean Corpuscular Hemoglobin 31.3, Mean Corpuscular Hemoglobin Concent 33.1, Red Cell Distribution Width 14.2 Vital Signs Date Time Temp Pulse Resp B/P (MAP) Pulse Ox O2 Delivery O2 Flow Rate FiO2 04/22/19 02:34 71 128/76 (93) 04/22/19 00:32 18 04/21/19 23:06 97.8 Abbey Snyder CNM Apr 22, 2019 06:37
[2019-04-22] MEDS ORDERED: OXYTOCIN 30 UNITS IN 0.9% NaCl 500ML IV BAG (J2590) As Ordered ONE (07:08)
[2019-04-22] MEDS ORDERED: OXYTOCIN DRIP 30 UNITS in IV 1 EA IV SCH (10:10)
[2019-04-22] MEDS ORDERED: MOM 30ML SUSPENSION UDC PO PRN (10:15)
[2019-04-22] MEDS ORDERED: METHYLERGONOVINE MALEATE 0.2 MG TAB PO PRN (10:15)
[2019-04-22] MEDS ORDERED: RHOGAM 300 MCG (1500 IU) INJ (J2790) IM SCH (10:15)
[2019-04-22] MEDS ORDERED: IBUPROFEN 800 MG TAB PO PRN (10:15)
[2019-04-22] MEDS ORDERED: ANUSOL HC CREAM 30GM TOP PRN (10:15)
[2019-04-22] MEDS ORDERED: MEASLES,MUMPS,RUBELLA VACCINE INJ (MMR-II) (90707) SC SCH (10:15)
[2019-04-22] MEDS ORDERED: ACETAMINOPHEN 500 MG TAB PO PRN (10:15)
[2019-04-22] MEDS ORDERED: ACETAMINOPHEN TAB 650MG DOSE (2X325MG) PO PRN (10:15)
[2019-04-22] MEDS ORDERED: DIBUCAINE 1% OINTMENT 30GM TOP PRN (10:15)
--- NOTE | 2019-04-22 10:41 | DN ---
DATE OF PROCEDURE: 04/22/2019 TIME OF : 09 GENDER: Male Apgars 9 and 9 WEIGHT: 6 pounds 8 ounces 2950 grams. ANESTHESIA: Epidural. ESTIMATED BLOOD LOSS: 300 mL LACERATIONS: Second degree midline laceration. COUNTS: 5 laparotomy sponges accounted for prior to delivery. One sharp removed from delivery field. DELIVERY NOTE: On April 22, 2019 at 094 a 24-year-old 1 now para 1had a spontaneous vaginal delivery of a live born male infant, Apgars 9 and 9, weight was 6 pounds 8 ounces 2950 grams. Head was delivered OA. There was a nuchal cord which was manually reduced followed by delivery shoulders and corpus. Infant was handed to mom with good cry. Cord was clamped times 2 was cut by the father of baby under my direction. Placenta was then drained delivered grossly intact. Premixed bag of 500 mL of normal saline with 30s Pitocin was then bolused along with uterine massage. On inspection there was a second-degree midline laceration which was repaired with 3-0 Vicryl Rapide. On reinspection cervix and vagina the perineum was grossly intact hemostatic. Mom baby recovered stable condition.
[2019-04-22] MEDS ORDERED: SLF 3 ML SYR IV PRN (11:15)
[2019-04-22] MEDS: IBUPROFEN 600 MG TAB PO PRN (11:41)
[2019-04-22] MEDS: SLF 3 ML SYR IV SCH ×2 (22:00→22:25)
[2019-04-22] MEDS: DOCUSATE SODIUM 100 MG CAP PO SCH (22:25)
[2019-04-23 06:14] VITALS: BP 98/66
[2019-04-23] MEDS: DOCUSATE SODIUM 100 MG CAP PO SCH ×2 (08:03→22:01)
[2019-04-23] MEDS: PRENATAL VITAMINS CHEWABLE TABLET PO SCH (08:03)
[2019-04-23] MEDS: IBUPROFEN 600 MG TAB PO PRN (08:03)
[2019-04-23 18:00] VITALS: BP 109/71
[2019-04-24 05:41] VITALS: BP 138/81
[2019-04-24] MEDS: PRENATAL VITAMINS CHEWABLE TABLET PO SCH (08:40)
[2019-04-24] MEDS: DOCUSATE SODIUM 100 MG CAP PO SCH (08:40)
[2019-04-24] MEDS ORDERED: IBUP80TA PO (10:18)
[2019-04-24] MEDS ORDERED: ACET-683 PO (10:18)
== END 2019-04-24 18:30 | disposition home or self-care (01) | DRG 560 ==
LOC: M LDO 22:45 → M LDI 23:53 → M OBS 04-22 14:04 → M PED 04-23 20:00
PROVIDERS: ADMIT Advanced Practice Midwife; ATTEND Obstetrics & Gynecology
PROC: 10E0XZZ Delivery of Products of Conception, External Approach (ICD-10-PCS; principal; 2019-04-22)
PROC: 0KQM0ZZ Repair Perineum Muscle, Open Approach (ICD-10-PCS; 2019-04-22)
DX: O48.0 Post-term pregnancy (principal); O69.81X0 Labor and delivery complicated by cord around neck, without compression, not applicable or unspecified; Z3A.40 40 weeks gestation of pregnancy; O70.1 Second degree perineal laceration during delivery; Z37.0 Single live birth

== ENCOUNTER 2019-11-03 17:21 | Emergency (ER) | payer OTHER ==
[~2019-11-03] VITALS: Ht 157.5 cm; Wt 54.5 kg
[~2019-11-03 17:21] MED LIST changes: +ACET-683 PO; +IBUP80TA PO; +PRENTAB9 PO
[2019-11-03 17:37] VITALS: BP 113/71
== END 2019-11-03 19:00 | disposition home or self-care (01) ==
LOC: M ED 17:21
DX: F43.0 Acute stress reaction (principal); F43.20 Adjustment disorder, unspecified; F17.210 Nicotine dependence, cigarettes, uncomplicated

== ENCOUNTER 2020-06-06 20:08 | Emergency (ER) | payer OTHER ==
[~2020-06-06] VITALS: Ht 157.5 cm; Wt 48.0 kg
[2020-06-06 20:09] VITALS: BP 109/74
[2020-06-06 20:59] LABS: BASO # 0.1 10^3/uL (0.0-0.2); BASO % 0.6 % (0.0-1.0); EOS # 0.6 10^3/uL (0.0-0.5); EOS % 6.6 % (0.0-3.0); HEMOGLOBIN 11.1 g/dl (12.0-15.5); LYMPH # 2.8 10^3/uL (1.5-5.0); LYMPH % 32.6 % (24.0-44.0); MEAN CORPUSCULAR HEMOGLOBIN 31.3 pg (27.0-33.0); MEAN CORPUSCULAR HGB CONC 31.7 g/dl (32.0-36.5); MEAN CORPUSCULAR VOLUME 98.6 fl (80.0-96.0); MONO # 0.6 10^3/uL (0.0-0.8); MONO % 7.4 % (0.0-5.0); NEUTROPHILS # 4.5 10^3/uL (1.5-8.5); NEUTROPHILS % 52.4 % (36.0-66.0); PLATELET COUNT, AUTOMATED 217 10^3/uL (150-450); RED BLOOD COUNT 3.55 10^6/uL (4.00-5.40); WHITE BLOOD COUNT 8.5 10^3/uL (4.0-10.0)
--- NOTE | 2020-06-06 22:17 | REPVR ---
PROCEDURE INFORMATION: Exam: XR Abdomen, 1 View Exam date and time: 06/06/2020 9:22 PM Age: 25 years old Clinical indication: Abdominal pain; Additional info: Lower abdominal pain TECHNIQUE: Imaging protocol: XR of the abdomen. Views: Frontal supine view of the abdomen. 1 View. COMPARISON: CT ABD PELVIS W/O CONTRAST 08/10/2013 12:15 AM FINDINGS: Heart/Mediastinum: The heart is normal in size. Gastrointestinal tract: There is gas throughout the bowel with no evidence of obstruction. There is no evidence of displacement of bowel. Food material is noted within the stomach. Intraperitoneal space: There is no evidence of pneumoperitoneum. Organs: There is a small calcification in the left pelvis and I could not exclude the possibility of a small stone distal left ureter. Correlation with clinical symptoms would be important. This could also represent a small phlebolith. Bones/joints: Unremarkable. IMPRESSION: 1. No evidence of bowel obstruction. 2. There is a punctate calcification in the left pelvis which could represent a small stone in the distal left ureter and recommend clinical correlation with the patients symptoms. Electronically signed by: Dayday Yanez On 06/06/2020 22:16:54 PM
== END 2020-06-06 22:36 | disposition home or self-care (01) ==
LOC: M ED 20:08
DX: K64.4 Residual hemorrhoidal skin tags (principal); F41.9 Anxiety disorder, unspecified

== ENCOUNTER 2020-08-07 22:00 | Emergency (ER) | payer OTHER ==
[~2020-08-07] VITALS: Ht 157.5 cm; Wt 48.0 kg
[2020-08-07 22:01] VITALS: BP 120/73
== END 2020-08-07 22:09 | disposition left against medical advice (07) ==
LOC: M ED 22:00
DX: Z53.21 Procedure and treatment not carried out due to patient leaving prior to being seen by health care provider (principal)

== ENCOUNTER 2020-09-22 21:07 | Emergency (ER) | payer OTHER ==
[~2020-09-22] VITALS: Ht 157.5 cm; Wt 49.5 kg
[2020-09-22] MEDS ORDERED: ACET-897 PO (21:18)
[2020-09-22 22:49] LABS: BASO # 0.1 10^3/uL (0.0-0.2); BASO % 0.4 % (0.0-1.0); EOS # 0.4 10^3/uL (0.0-0.5); EOS % 3.3 % (0.0-3.0); HEMOGLOBIN 11.5 g/dl (12.0-15.5); LYMPH # 2.8 10^3/uL (1.5-5.0); LYMPH % 24.6 % (24.0-44.0); MEAN CORPUSCULAR HEMOGLOBIN 30.5 pg (27.0-33.0); MEAN CORPUSCULAR HGB CONC 31.1 g/dl (32.0-36.5); MEAN CORPUSCULAR VOLUME 98.1 fl (80.0-96.0); MONO # 0.7 10^3/uL (0.0-0.8); MONO % 5.9 % (0.0-5.0); NEUTROPHILS # 7.3 10^3/uL (1.5-8.5); NEUTROPHILS % 65.4 % (36.0-66.0); PLATELET COUNT, AUTOMATED 217 10^3/uL (150-450); RED BLOOD COUNT 3.77 10^6/uL (4.00-5.40); WHITE BLOOD COUNT 11.2 10^3/uL (4.0-10.0)
[2020-09-22 23:00] LABS: INR 0.99; PARTIAL THROMBOPLASTIN TIME 32.5 SECONDS (24.2-38.5); PROTHROMBIN TIME 13.3 SECONDS (12.5-14.3)
[2020-09-22 23:27] LABS: BILIRUBIN,DIRECT 0.1 MG/DL (0.0-0.2); BILIRUBIN,TOTAL 0.2 MG/DL (0.2-1.0); FREE T3 2.3 PG/ML (2.2-4.0); FREE T4 0.99 NG/DL (0.76-1.46); THYROID STIMULATING HORMONE 0.986 uIU/ML (0.358-3.740); TOTAL PROTEIN 7.1 GM/DL (6.4-8.2)
--- NOTE | 2020-09-22 23:37 | REPVR ---
PROCEDURE INFORMATION: Exam: US Pelvis Complete, Transabdominal and US Pelvis, Transvaginal Exam date and time: 09/22/2020 11:24 PM Age: 25 years old Clinical indication: Menstruation abnormalities; Irregular menstruation; Additional info: Irregular/heavy bleeding TECHNIQUE: Imaging protocol: Real-time transabdominal and transvaginal pelvic ultrasound (complete) with image documentation. Transvaginal imaging was used for better evaluation of the endometrium, adnexa, and/or cervix. COMPARISON: US OBS FOLL UP OR REPEAT EACH GES 03/09/2019 9:20 AM FINDINGS: Uterus/cervix: The uterus measures 9.3 cm in its cephalocaudad dimension and 3.8 x 4.9 cm in its AP and lateral dimensions transabdominal. The endometrium measures 7 mm transabdominal and 9 mm transvaginal. The uterus measures 7.9 cm in its cephalocaudad dimension and 3.4 x 5.1 cm in its AP and lateral dimensions transvaginal. Right adnexa: The right ovary measures 3.2 x 4.1 x 3.0 cm and demonstrates a small cyst/follicle measuring 20 x 19 x 23 mm. There is arterial and venous blood flow. Left adnexa: The left ovary measures 2.6 x 4.0 x 1.7 cm and demonstrates arterial and venous blood flow. Intraperitoneal space: No intraperitoneal fluid. Urinary bladder: The urinary bladder is decompressed measuring 2.6 x 1.5 x 5.3 cm. IMPRESSION: 1. Right ovarian cyst/follicle measuring 20 x 19 x 23 mm. 2. Otherwise negative pelvic sonogram. Electronically signed by: Daniel Sanon On 09/22/2020 23:37:15 PM
[2020-09-23 00:10] VITALS: BP 122/68
== END 2020-09-23 00:31 | disposition home or self-care (01) ==
LOC: M ED 21:07
DX: N83.201 Unspecified ovarian cyst, right side (principal); N92.6 Irregular menstruation, unspecified; F33.9 Major depressive disorder, recurrent, unspecified; F41.9 Anxiety disorder, unspecified

== ENCOUNTER 2021-01-30 22:19 | Emergency (ER) | payer OTHER ==
[~2021-01-30] VITALS: Ht 157.5 cm; Wt 44.5 kg
[~2021-01-30 22:19] MED LIST changes: +ACET-897 PO
[2021-01-31 01:09] LABS: BASO # 0.1 10^3/uL (0.0-0.2); BASO % 0.5 % (0.0-1.0); EOS # 0.6 10^3/uL (0.0-0.5); EOS % 5.8 % (0.0-3.0); HEMATOCRIT 40.3 % (36.0-47.0); HEMOGLOBIN 12.9 g/dl (12.0-15.5); LYMPH # 4.6 10^3/uL (1.5-5.0); LYMPH % 44.7 % (24.0-44.0); MEAN CORPUSCULAR HEMOGLOBIN 31.6 pg (27.0-33.0); MEAN CORPUSCULAR VOLUME 98.8 fl (80.0-96.0); MONO # 0.8 10^3/uL (0.0-0.8); MONO % 7.7 % (2.0-8.0); NEUTROPHILS # 4.2 10^3/uL (1.5-8.5); PLATELET COUNT, AUTOMATED 243 10^3/uL (150-450); RED BLOOD COUNT 4.08 10^6/uL (4.00-5.40); WHITE BLOOD COUNT 10.2 10^3/uL (4.0-10.0)
[2021-01-31 01:22] LABS: ALBUMIN 4.3 GM/DL (3.2-5.2); ALT/SGPT 26 U/L (12-78); BILIRUBIN,DIRECT < 0.1 MG/DL (0.0-0.2); BILIRUBIN,TOTAL 0.2 MG/DL (0.2-1.0); BLOOD UREA NITROGEN 15 MG/DL (7-18); CALCIUM LEVEL 9.5 MG/DL (8.5-10.1); CARBON DIOXIDE LEVEL 27 MEQ/L (21-32); CHLORIDE LEVEL 109 MEQ/L (98-107); CREATININE FOR GFR 0.76 MG/DL (0.55-1.30); GLOMERULAR FILTRATION RATE > 60.0 (>60); GLUCOSE, FASTING 89 MG/DL (70-100); LIPASE 154 U/L (73-393); POTASSIUM SERUM 4.2 MEQ/L (3.5-5.1); SODIUM LEVEL 140 MEQ/L (136-145); TOTAL PROTEIN 7.6 GM/DL (6.4-8.2)
[2021-01-31 01:25] LABS: HCG, SERUM QUALITATIVE NEGATIVE (NEGATIVE)
[2021-01-31] MEDS ORDERED: ISOVUE-370 76% 100ML VIAL As Ordered ONE (02:38)
--- NOTE | 2021-01-31 05:04 | REPVR ---
PROCEDURE INFORMATION: Exam: CT Abdomen And Pelvis With Contrast Exam date and time: 01/31/2021 2:33 AM Age: 26 years old Clinical indication: Abdominal pain; Periumbilical; Additional info: Periumbilical pain TECHNIQUE: Imaging protocol: Computed tomography of the abdomen and pelvis with contrast. Radiation optimization: All CT scans at this facility use at least one of these dose optimization techniques: automated exposure control; mA and/or kV adjustment per patient size (includes targeted exams where dose is matched to clinical indication); or iterative reconstruction. Contrast material: ISO; Contrast volume: 100 ml; Contrast route: INTRAVENOUS (IV); COMPARISON: US PELVIC NON-OB COMPLETE 09/22/2020 11:02 PM FINDINGS: Lungs: The visualized portions of the lung bases are normal. Liver: There are no focal liver lesions present. Gallbladder and bile ducts: The gallbladder is normal with no stones or biliary ductal dilation. Pancreas: The pancreas is normal with no ductal dilation. Spleen: The spleen is normal. Adrenal glands: The adrenal glands are normal. Kidneys and ureters: The kidneys are unremarkable. There is no hydronephrosis. The nondilated distal ureters are difficult to trace. Stomach and bowel: The small bowel appears unremarkable. There is no dilation or thickening of the colon. There is a large amount of stool in the colon, although only a small amount of stool is seen in the rectum. Appendix: The appendix is not specifically identified. Intraperitoneal space: There is a small amount of free fluid in the pelvis. There is no free intraperitoneal air. Vasculature: No aortic aneurysm. Lymph nodes: No lymphadenopathy is seen. Urinary bladder: The bladder is unremarkable. No stones identified. Reproductive: The uterus is unremarkable. Bones/joints: No suspicious osseous lesions. No acute fractures. Soft tissues: The soft tissues appear unremarkable. IMPRESSION: 1. The appendix could not be specifically identified. The patient has relatively little internal fat, which makes it difficult to delineate individual structures. Appendicitis is not entirely excluded. 2. Small amount of free fluid in the pelvis is nonspecific and can be physiologic in a female patient of this age. 3. Large amount of stool in the colon. Correlate with symptoms of constipation. Electronically signed by: Brigette Weiss On 01/31/2021 05:04:11 AM
[2021-01-31 06:30] VITALS: BP 101/69
== END 2021-01-31 06:59 | disposition home or self-care (01) ==
LOC: M ED 22:19
DX: R10.9 Unspecified abdominal pain (principal); F41.0 Panic disorder [episodic paroxysmal anxiety]; F90.9 Attention-deficit hyperactivity disorder, unspecified type
CPT/HCPCS: 36415; 74177; 80048; 80076; 81001; 83690; 84703; 85025; 99284; Q9967

== ENCOUNTER → 2021-09-14 | Outpatient (REF) | payer OTHER ==
[2021-09-15 16:45] LABS: APPEARANCE, URINE HAZY (CLEAR); BACTERIA, URINE AUTO 1+ (NEGATIVE); BILIRUBIN, URINE AUTO NEGATIVE (NEGATIVE); BLOOD, URINE BLOOD NEGATIVE (NEGATIVE); COLOR, URINE YELLOW (YELLOW); GLUCOSE, URINE (UA) AUTO NEGATIVE (NEGATIVE); KETONE, URINE AUTO NEGATIVE (NEGATIVE); LEUKOCYTE ESTERASE, URINE AUTO TRACE (NEGATIVE); MUCUS, URINE LARGE (NEGATIVE); NITRITE, URINE AUTO POSITIVE (NEGATIVE); PROTEIN, URINE AUTO NEGATIVE (NEGATIVE); RBC, URINE AUTO 3 /HPF (0-3); SPECIFIC GRAVITY URINE AUTO 1.021 (1.002-1.035); SQUAMOUS EPITHELIAL CELL UR AU 8 /HPF (0-6); WBC, URINE AUTO 7 /HPF (0-3)
== END ==
LOC: M LAB REF 11:15
PROVIDERS: ATTEND Physician Assistant Medical
DX: R30.0 Dysuria (principal)

== ENCOUNTER 2021-10-22 20:35 | Emergency (ER) | payer OTHER ==
[~2021-10-22] VITALS: Ht 157.5 cm; Wt 47.7 kg
[2021-10-22 20:53] VITALS: BP 150/86
[2021-10-22] MEDS ORDERED: PREN1CHW6 PO (20:53)
[2021-10-22 21:59] LABS: HEMATOCRIT 35.4 % (36.0-47.0); HEMOGLOBIN 11.9 g/dl (12.0-15.5); MEAN CORPUSCULAR HEMOGLOBIN 31.6 pg (27.0-33.0); MEAN CORPUSCULAR HGB CONC 33.6 g/dl (32.0-36.5); MEAN CORPUSCULAR VOLUME 94.1 fl (80.0-96.0); PLATELET COUNT, AUTOMATED 249 10^3/uL (150-450); RED BLOOD COUNT 3.76 10^6/uL (4.00-5.40); WHITE BLOOD COUNT 19.2 10^3/uL (4.0-10.0)
[2021-10-22 22:25] LABS: AMPHETAMINES LEVEL URINE NEGATIVE (NEGATIVE); BARBITURATES URINE NEGATIVE (NEGATIVE); BENZODIAZEPINES URINE NEGATIVE (NEGATIVE); CANNABINOIDS URINE POSITIVE (NEGATIVE); COCAINE METABOLITE URINE NEGATIVE (NEGATIVE); METHADONE URINE NEGATIVE (NEGATIVE); OPIATES URINE NEGATIVE (NEGATIVE); PHENCYCLIDINE URINE NEGATIVE (NEGATIVE)
[2021-10-22] MEDS ORDERED: KP P1TAB PO (22:25)
[2021-10-22] MEDS ORDERED: HOME MED LIST COMPLETE! XX SCH (22:25)
[2021-10-22 22:29] LABS: HCG, SERUM QUALITATIVE POSITIVE (NEGATIVE)
[2021-10-22 22:37] LABS: ACETAMINOPHEN LEVEL < 2.0 UG/ML (10.0-30.0); ALBUMIN 3.5 GM/DL (3.2-5.2); ALT/SGPT 16 U/L (12-78); BILIRUBIN,DIRECT < 0.1 MG/DL (0.0-0.2); BILIRUBIN,TOTAL 0.2 MG/DL (0.2-1.0); BLOOD UREA NITROGEN 15 MG/DL (7-18); CALCIUM LEVEL 9.2 MG/DL (8.5-10.1); CARBON DIOXIDE LEVEL 22 MEQ/L (21-32); CHLORIDE LEVEL 109 MEQ/L (98-107); CREATININE FOR GFR 0.61 MG/DL (0.55-1.30); ETHYL ALCOHOL (ETHANOL) < 0.003 % (0.000-0.010); GLOMERULAR FILTRATION RATE > 60.0 (>60); GLUCOSE, FASTING 103 MG/DL (70-100); SALICYLATE LEVEL < 1.7 MG/DL (5.0-30.0); SODIUM LEVEL 139 MEQ/L (136-145); TOTAL PROTEIN 6.9 GM/DL (6.4-8.2)
[2021-10-22 22:44] LABS: RSV AMPLIFICATION NEGATIVE (NEGATIVE)
[2021-10-23] MEDS ORDERED: FOSFOMYCIN TROMETHAMINE 3 GM POWDER PACKET (MONUROL) PO SCH (00:10)
[2021-10-23] MEDS ORDERED: FOSF3PAC2 PO (01:38)
== END 2021-10-23 02:28 | disposition home or self-care (01) ==
LOC: M ED 20:35
DX: R45.851 Suicidal ideations (principal); N39.0 Urinary tract infection, site not specified; F41.9 Anxiety disorder, unspecified; Z79.899 Other long term (current) drug therapy

== ENCOUNTER → 2021-12-11 | Outpatient (REF) | payer OTHER ==
[~2021-12-11] MED LIST changes: +FOSF3PAC2 PO; +KP P1TAB PO; +PREN1CHW6 PO
[2021-12-11 18:25] LABS: HEMATOCRIT 36.4 % (36.0-47.0); HEMOGLOBIN 11.9 g/dl (12.0-15.5); MEAN CORPUSCULAR HEMOGLOBIN 32.3 pg (27.0-33.0); MEAN CORPUSCULAR HGB CONC 32.7 g/dl (32.0-36.5); MEAN CORPUSCULAR VOLUME 98.9 fl (80.0-96.0); PLATELET COUNT, AUTOMATED 320 10^3/uL (150-450); RED BLOOD COUNT 3.68 10^6/uL (4.00-5.40); WHITE BLOOD COUNT 14.9 10^3/uL (4.0-10.0)
[2021-12-11 19:43] LABS: HCG, SERUM QUANTITATIVE 10144 MIU/ML; HEPATITIS B SURFACE ANTIGEN NEGATIVE (NEGATIVE); HEPATITIS C VIRUS ABY INDEX 0.1 INDEX (<0.8); HIV 1&2 SCREEN CENTAUR NEGATIVE (NEGATIVE)
== END ==
LOC: M LAB REF 16:32
PROVIDERS: ATTEND Advanced Practice Midwife
DX: Z32.01 Encounter for pregnancy test, result positive (principal)

== ENCOUNTER → 2022-01-14 | Outpatient (REF) | payer OTHER | LOC: M LAB REF 16:56 | PROVIDERS: ATTEND Obstetrics & Gynecology | DX: Z34.82 Encounter for supervision of other normal pregnancy, second trimester (principal) ==

== ENCOUNTER → 2022-03-31 | Outpatient (CLI) | payer OTHER ==
[2022-03-31 17:14] LABS: HEMATOCRIT 33.6 % (36.0-47.0); HEMOGLOBIN 10.7 g/dl (12.0-15.5); MEAN CORPUSCULAR HEMOGLOBIN 30.4 pg (27.0-33.0); MEAN CORPUSCULAR HGB CONC 31.8 g/dl (32.0-36.5); MEAN CORPUSCULAR VOLUME 95.5 fl (80.0-96.0); PLATELET COUNT, AUTOMATED 353 10^3/uL (150-450); RED BLOOD COUNT 3.52 10^6/uL (4.00-5.40)
== END ==
LOC: M WUC 13:32
PROVIDERS: ATTEND Obstetrics & Gynecology
DX: Z34.82 Encounter for supervision of other normal pregnancy, second trimester (principal)

== ENCOUNTER 2022-04-23 08:43 | Inpatient (IN) | payer OTHER ==
[~2022-04-23] VITALS: Ht 157.5 cm; Wt 63.0 kg
[2022-04-23] VITALS (11 sets, daily range): BP systolic 95–121; BP diastolic 58–77
[2022-04-23] MEDS ORDERED: METHYLERGONOVINE MALEATE 0.2 MG/ML VIAL (J2210) IM PRN (10:40)
[2022-04-23] MEDS ORDERED: TRANEXAMIC ACID INJection 1,000 MG in NS 100 ML IV PRN (10:40)
[2022-04-23] MEDS ORDERED: LR 1,000 ML IV SCH (10:40)
[2022-04-23] MEDS ORDERED: LIDOCAINE 1% MDV 20ML VIAL INFIL PRN (10:40)
[2022-04-23] MEDS ORDERED: LACTATED RINGER'S 1000 ML IV STA (10:40)
[2022-04-23] MEDS ORDERED: OXYTOCIN DRIP 30 UNITS in IV 1 EA IV PRN (10:40)
[2022-04-23 11:22] LABS: HEMATOCRIT 36.4 % (36.0-47.0); HEMOGLOBIN 12.1 g/dl (12.0-15.5); MEAN CORPUSCULAR HGB CONC 33.2 g/dl (32.0-36.5); MEAN CORPUSCULAR VOLUME 93.3 fl (80.0-96.0); PLATELET COUNT, AUTOMATED 383 10^3/uL (150-450); WHITE BLOOD COUNT 24.7 10^3/uL (4.0-10.0)
[2022-04-23] MEDS ORDERED: ACETAMINOPHEN TAB 650MG DOSE (2X325MG) PO PRN (13:15)
[2022-04-23] MEDS ORDERED: DIBUCAINE 1% OINTMENT 30GM TOP PRN (13:15)
[2022-04-23] MEDS ORDERED: DOCUSATE SODIUM 100MG CAPSULE PO PRN (13:15)
[2022-04-23] MEDS ORDERED: ACETAMINOPHEN 500 MG TAB PO PRN (13:15)
[2022-04-23] MEDS ORDERED: METHYLERGONOVINE MALEATE 0.2 MG TAB PO PRN (13:15)
[2022-04-23] MEDS ORDERED: ANUSOL HC CREAM 30GM TOP PRN (13:15)
[2022-04-23] MEDS ORDERED: RHOGAM 300 MCG (1500 IU) INJ (J2790) IM SCH (13:15)
[2022-04-23] MEDS ORDERED: IBUPROFEN 600MG TAB PO PRN (13:15)
[2022-04-23] MEDS ORDERED: MOM 30ML SUSPENSION UDC PO PRN (13:15)
[2022-04-23] MEDS ORDERED: OXYTOCIN DRIP 30 UNITS in IV 1 EA IV SCH (13:15)
[2022-04-23] MEDS: PRENATAL VITAMINS CHEWABLE TABLET PO SCH (13:26)
[2022-04-23] MEDS: IBUPROFEN 800 MG TAB PO PRN ×2 (13:26→20:28)
[2022-04-24 06:00] VITALS: BP 107/63
[2022-04-24] MEDS: PRENATAL VITAMINS CHEWABLE TABLET PO SCH (08:26)
[2022-04-24] MEDS: IBUPROFEN 800 MG TAB PO PRN ×2 (08:26→20:21)
[2022-04-24] MEDS ORDERED: BOOSTRIX/ADACEL VACCINE (DIPHTH/PERTUSS/ACELL/TETANUS) 0.5ML SYR IM.IMMUN ONE (09:00)
[2022-04-24 18:20] VITALS: BP 116/58
[2022-04-25 06:00] VITALS: BP 105/66
[2022-04-25] MEDS ORDERED: MEASLES,MUMPS,RUBELLA VACCINE INJ (MMR-II) (90707) SC.IMMUN ONE (09:00)
[2022-04-25] MEDS ORDERED: ACET-683 PO (10:42)
[2022-04-25] MEDS ORDERED: IBUP80TA PO (10:42)
[2022-04-25] MEDS: PRENATAL VITAMINS CHEWABLE TABLET PO SCH (12:39)
[2022-04-25] MEDS: IBUPROFEN 800 MG TAB PO PRN (12:40)
== END 2022-04-25 13:15 | disposition home or self-care (01) | DRG 560 ==
LOC: M LDO 08:43 → M LDI 09:28 → M OBS 14:08
PROVIDERS: ADMIT Obstetrics & Gynecology; ATTEND Obstetrics & Gynecology
PROC: 10E0XZZ Delivery of Products of Conception, External Approach (ICD-10-PCS; principal; 2022-04-23)
PROC: 0HQ9XZZ Repair Perineum Skin, External Approach (ICD-10-PCS; 2022-04-23)
DX: O69.81X0 Labor and delivery complicated by cord around neck, without compression, not applicable or unspecified (principal); O70.0 First degree perineal laceration during delivery; Z3A.38 38 weeks gestation of pregnancy; Z37.0 Single live birth

== ENCOUNTER → 2023-07-25 | Outpatient (REF) | payer SELFPAY ==
[2023-07-25 18:46] LABS: APPEARANCE, URINE CLOUDY (CLEAR); BACTERIA, URINE AUTO 3+ (NEGATIVE); BILIRUBIN, URINE AUTO NEGATIVE (NEGATIVE); BLOOD, URINE BLOOD NEGATIVE (NEGATIVE); COLOR, URINE AMBER (YELLOW); GLUCOSE, URINE (UA) AUTO NEGATIVE (NEGATIVE); KETONE, URINE AUTO NEGATIVE (NEGATIVE); LEUKOCYTE ESTERASE, URINE AUTO 2+ (NEGATIVE); MUCUS, URINE LARGE (NEGATIVE); NITRITE, URINE AUTO POSITIVE (NEGATIVE); PROTEIN, URINE AUTO NEGATIVE (NEGATIVE); RBC, URINE AUTO 1 /HPF (0-3); SPECIFIC GRAVITY URINE AUTO 1.024 (1.002-1.035); SQUAMOUS EPITHELIAL CELL UR AU 6 /HPF (0-6); WBC, URINE AUTO 13 /HPF (0-3)
== END ==
LOC: M LAB REF 17:58
PROVIDERS: ATTEND Physician Assistant Medical
DX: N39.0 Urinary tract infection, site not specified (principal)

== ENCOUNTER 2023-12-22 01:36 | Emergency (ER) | payer SELFPAY ==
[~2023-12-22] VITALS: Ht 157.5 cm; Wt 51.9 kg
[2023-12-22 01:36] VITALS: BP 140/69; TEMP 98.3; O2SAT 99
== END 2023-12-22 03:28 | disposition left against medical advice (07) ==
LOC: M ED 01:36
DX: Z53.21 Procedure and treatment not carried out due to patient leaving prior to being seen by health care provider (principal)